=== PATIENT | male | born 1985 | race Caucasian/White ===

== ENCOUNTER 2017-01-16 20:36 | Emergency (ER) | payer OTHER, SELFPAY ==
[~2017-01-16] VITALS: Ht 177.8 cm; Wt 117.9 kg
[2017-01-16] MEDS ORDERED: NORCO, ANEXSIA 5/325MG TABLET (HYDROcodone/ACETAMINOPHEN) PO ONE (21:30)
[2017-01-16] MEDS ORDERED: NORCO 5/325MG TABLET (BULK FOR ED) PO ONE (22:15)
[2017-01-16] MEDS ORDERED: NORCOTAB PO (22:30)
[2017-01-16 22:58] VITALS: BP 158/84
--- NOTE | 2017-01-17 07:48 | REP ---
There is an a avulsion versus accessory ossicle at the base of the middle finger proximal phalange. Mineralization and joint spaces are otherwise unremarkable. No foreign bodies. Correlation with clinical point tenderness is recommended. Signed by Jose Cook MD 01/17/2017 07:40 A
--- NOTE | 2017-01-17 07:50 | REP ---
Bilateral femurs: Right femur four views: There is a fracture versus unfused the epiphyses of the lesser trochanter, nondisplaced. Mineralization and joint space are normal. No other fracture or dislocation. Left femur four views: There is no fracture or dislocation. Mineralization and joint spaces are normal. No calcifications or foreign bodies. Impression: Negative left femur. Signed by Jose Cook MD 01/17/2017 07:42 A
--- NOTE | 2017-01-17 07:51 | REP ---
AP pelvis: There is a fracture versus accessory ossicle at the tip of the right lesser trochanter. No other pelvic fractures identified. Mineralization joint spaces are normal. There are no foreign bodies. Signed by Jose Cook MD 01/17/2017 07:43 A
--- NOTE | 2017-01-17 12:49 | ED PDOC ---
Post-Departure Follow-Up certified letter sent to pt re formal read of right hand film. needs repeat exam. refer to ortho please if persistent symptoms. Rogelio Conte MD Jan 17, 2017 12:49
== END 2017-01-16 23:12 | disposition home or self-care (01) ==
LOC: EDBD 20:36 → M ED 20:36
DX: S66.911A Strain of unspecified muscle, fascia and tendon at wrist and hand level, right hand, initial encounter (principal); S70.11XA Contusion of right thigh, initial encounter; S70.12XA Contusion of left thigh, initial encounter; V23.4XXA Motorcycle driver injured in collision with car, pick-up truck or van in traffic accident, initial encounter; Y92.410 Unspecified street and highway as the place of occurrence of the external cause; Y93.89 Activity, other specified; Y99.9 Unspecified external cause status

== ENCOUNTER 2017-01-21 12:36 | Emergency (ER) | payer OTHER, SELFPAY ==
[~2017-01-21] VITALS: Ht 177.8 cm; Wt 118.2 kg
[~2017-01-21 12:36] MED LIST: NORCOTAB PO
[2017-01-21 12:37] VITALS: BP 148/82
[2017-01-21] MEDS ORDERED: NORCO, ANEXSIA 5/325MG TABLET (HYDROcodone/ACETAMINOPHEN) PO ONE (14:30)
--- NOTE | 2017-01-21 15:29 | REP ---
Right knee five views : There is no fracture or dislocation. Mineralization and joint spaces are normal. There are no calcifications or foreign bodies. Impression: Negative right knee . Signed by Jose Cook MD 01/21/2017 03:20 P
== END 2017-01-21 15:53 | disposition home or self-care (01) ==
LOC: M ED 12:36
DX: S80.01XD Contusion of right knee, subsequent encounter (principal); V23.4XXD Motorcycle driver injured in collision with car, pick-up truck or van in traffic accident, subsequent encounter; Y92.410 Unspecified street and highway as the place of occurrence of the external cause; Y93.89 Activity, other specified; Y99.9 Unspecified external cause status

== ENCOUNTER 2017-08-29 03:23 | Emergency (ER) | payer SELFPAY ==
[2017-08-29] MEDS: ASPIRIN 325 MG TAB PO (04:06)
[2017-08-29] MEDS: KETOROLAC 30 MG/ML VIAL (J1885) IV (04:06)
[2017-08-29] MEDS: NS 1,000 ML IV (04:08)
[2017-08-29 04:14] LABS: BASO % 0.4 % (0.0-1.0); EOS % 0.5 % (0.0-3.0); HEMOGLOBIN 14.9 g/dl (14.0-18.0); IMMATURE GRANULOCYTE % 0.5 % (0-3.0); LYMPH # 2.1 10^3/uL (1.5-4.5); LYMPH % 28.7 % (24.0-44.0); MEAN CORPUSCULAR HEMOGLOBIN 31.8 pg (27.0-33.0); MEAN CORPUSCULAR HGB CONC 35.5 g/dl (32.0-36.5); MEAN CORPUSCULAR VOLUME 89.6 fl (80.0-96.0); MONO # 0.6 10^3/uL (0.0-0.8); MONO % 8.4 % (0.0-5.0); NEUTROPHILS # 4.5 10^3/uL (1.8-7.7); NEUTROPHILS % 61.5 % (36.0-66.0); PLATELET COUNT, AUTOMATED 206 10^3/uL (150-450); RED BLOOD COUNT 4.69 10^6/uL (4.30-6.10); RED CELL DISTRIBUTION WIDTH 12.5 % (11.5-14.5); WHITE BLOOD COUNT 7.3 10^3/uL (4.0-10.0)
[2017-08-29 04:17] LABS: INR 0.95; PARTIAL THROMBOPLASTIN TIME 27.7 SECONDS (26.8-37.9); PROTHROMBIN TIME 12.8 SECONDS (12.4-14.5)
[2017-08-29 04:18] LABS: ANION GAP 7 MEQ/L (8-16); BLOOD UREA NITROGEN 15 MG/DL (7-18); CALCIUM LEVEL 8.6 MG/DL (8.5-10.1); CARBON DIOXIDE LEVEL 29 MEQ/L (21-32); CHLORIDE LEVEL 107 MEQ/L (98-107); CK-MB VALUE MASS 6.5 NG/ML (0.0-3.6); CPK CREATINE PHOSPHOKINASE 291 U/L (39-308); GLOMERULAR FILTRATION RATE > 60.0 (>60); GLUCOSE, FASTING 77 MG/DL (70-100); MB/CK RELATIVE INDEX 2.23 (< OR =4); POTASSIUM SERUM 3.6 MEQ/L (3.5-5.1); SODIUM LEVEL 143 MEQ/L (136-145); TROPONIN I < 0.02 NG/ML (< 0.10)
[2017-08-29] MEDS ORDERED: ISOVUE-370 76% 100ML VIAL (Q9967) As Ordered ×2 (04:26→04:48)
[2017-08-29 04:39] LABS: AMPHETAMINES LEVEL URINE NEGATIVE (NEGATIVE); BARBITURATES URINE NEGATIVE (NEGATIVE); BENZODIAZEPINES URINE NEGATIVE (NEGATIVE); CANNABINOIDS URINE POSITIVE (NEGATIVE); COCAINE METABOLITE URINE NEGATIVE (NEGATIVE); METHADONE URINE NEGATIVE (NEGATIVE); OPIATES URINE NEGATIVE (NEGATIVE); PHENCYCLIDINE URINE NEGATIVE (NEGATIVE)
== END 2017-08-29 06:45 | disposition home or self-care (01) ==
LOC: M ED 03:23
DX: R07.89 Other chest pain (principal); Z87.891 Personal history of nicotine dependence
CPT/HCPCS: Q9967

== ENCOUNTER 2018-03-17 21:08 | Emergency (ER) | payer MEDICAID, SELFPAY ==
[2018-03-17] MEDS: BENZONATATE 100 MG CAP PO ×2 (21:59)
[2018-03-17] MEDS: IBUPROFEN 800 MG TAB PO ×2 (21:59)
[2018-03-17 22:01] LABS: BASO # 0.1 10^3/uL (0.0-0.2); BASO % 0.6 % (0.0-1.0); EOS # 0.1 10^3/uL (0.0-0.50); HEMATOCRIT 44.1 % (42.0-52.0); HEMOGLOBIN 15.3 g/dl (13.5-17.5); IMMATURE GRANULOCYTE % 0.6 % (0-3.0); LYMPH % 29.8 % (24.0-44.0); MEAN CORPUSCULAR HEMOGLOBIN 31.9 pg (27.0-33.0); MEAN CORPUSCULAR HGB CONC 34.7 g/dl (32.0-36.5); MEAN CORPUSCULAR VOLUME 91.9 fl (80.0-96.0); MONO # 0.8 10^3/uL (0.0-0.8); MONO % 8.2 % (0.0-5.0); NEUTROPHILS # 6.1 10^3/uL (1.8-7.7); NEUTROPHILS % 59.8 % (36.0-66.0); PLATELET COUNT, AUTOMATED 230 10^3/uL (150-450); RED CELL DISTRIBUTION WIDTH 12.3 % (11.5-14.5); WHITE BLOOD COUNT 10.2 10^3/uL (4.0-10.0)
[2018-03-17] MEDS: ALBUTEROL SULFATE 2.5 MG/0.5 ML INH NEB SOLN NEB ×2 (22:03)
[2018-03-17 22:25] LABS: ANION GAP 6 MEQ/L (8-16); BLOOD UREA NITROGEN 17 MG/DL (7-18); CALCIUM LEVEL 9.2 MG/DL (8.5-10.1); CARBON DIOXIDE LEVEL 30 MEQ/L (21-32); CHLORIDE LEVEL 107 MEQ/L (98-107); CPK CREATINE PHOSPHOKINASE 339 U/L (39-308); CREATININE FOR GFR 1.04 MG/DL (0.70-1.30); GLOMERULAR FILTRATION RATE > 60.0 (>60); GLUCOSE, FASTING 101 MG/DL (70-100); MB/CK RELATIVE INDEX 1.56 (< OR =4); POTASSIUM SERUM 4.1 MEQ/L (3.5-5.1); SODIUM LEVEL 143 MEQ/L (136-145); TROPONIN I < 0.02 NG/ML (< 0.10)
[2018-03-17] MEDS: AZITHROMYCIN 250 MG TAB PO ×2 (23:00)
== END 2018-03-17 23:12 | disposition home or self-care (01) ==
LOC: M ED 21:08
DX: J40 Bronchitis, not specified as acute or chronic (principal)
CPT/HCPCS: 71046

== ENCOUNTER 2018-03-29 11:33 | Emergency (ER) | payer MEDICAID, SELFPAY ==
[2018-03-29 12:02] LABS: BASO % 0.4 % (0.0-1.0); EOS # 0.1 10^3/uL (0.0-0.50); EOS % 1.1 % (0.0-3.0); HEMATOCRIT 47.2 % (42.0-52.0); HEMOGLOBIN 16.7 g/dl (13.5-17.5); IMMATURE GRANULOCYTE % 0.7 % (0-3.0); LYMPH # 1.8 10^3/uL (1.5-4.5); LYMPH % 23.8 % (24.0-44.0); MEAN CORPUSCULAR HEMOGLOBIN 32.2 pg (27.0-33.0); MEAN CORPUSCULAR HGB CONC 35.4 g/dl (32.0-36.5); MEAN CORPUSCULAR VOLUME 90.9 fl (80.0-96.0); MONO # 0.6 10^3/uL (0.0-0.8); MONO % 7.4 % (0.0-5.0); NEUTROPHILS % 66.6 % (36.0-66.0); PLATELET COUNT, AUTOMATED 195 10^3/uL (150-450); RED BLOOD COUNT 5.19 10^6/uL (4.30-6.10); RED CELL DISTRIBUTION WIDTH 12.4 % (11.5-14.5); WHITE BLOOD COUNT 7.5 10^3/uL (4.0-10.0)
[2018-03-29 12:42] LABS: ALBUMIN 3.7 GM/DL (3.2-5.2); ALBUMIN/GLOBULIN RATIO 0.95 (1.00-1.93); ALKALINE PHOSPHATASE 61 U/L (45-117); ALT/SGPT 122 U/L (12-78); ANION GAP 5 MEQ/L (8-16); AST/SGOT 44 U/L (7-37); BILIRUBIN,DIRECT 0.1 MG/DL (0.0-0.2); BILIRUBIN,TOTAL 0.6 MG/DL (0.2-1.0); BLOOD UREA NITROGEN 12 MG/DL (7-18); CALCIUM LEVEL 8.7 MG/DL (8.5-10.1); CARBON DIOXIDE LEVEL 29 MEQ/L (21-32); CHLORIDE LEVEL 106 MEQ/L (98-107); CREATININE FOR GFR 0.97 MG/DL (0.70-1.30); GLOMERULAR FILTRATION RATE > 60.0 (>60); GLUCOSE, FASTING 111 MG/DL (70-100); LIPASE 115 U/L (73-393); POTASSIUM SERUM 4.1 MEQ/L (3.5-5.1); SODIUM LEVEL 140 MEQ/L (136-145); TOTAL PROTEIN 7.6 GM/DL (6.4-8.2)
[2018-03-29 12:56] LABS: KETONE, URINE AUTO RFX NEGATIVE (NEGATIVE); LEUKOCYTE ESTERASE UR AUTO RFX NEGATIVE (NEGATIVE); NITRITE, URINE AUTO RFX NEGATIVE (NEGATIVE); RBC, URINE AUTO RFX 1 /HPF (0-3); SPECIFIC GRAVITY UR AUTO RFX 1.021 (1.002-1.035); SQUAM EPITHELIAL CELL UR AURFX 0 /HPF (0-6); WBC, URINE AUTO RFX 1 /HPF (0-3)
[2018-03-29] MEDS: NS 1,000 ML IV (13:16)
[2018-03-29] MEDS: KETOROLAC 30 MG/ML VIAL (J1885) IV (13:16)
== END 2018-03-29 14:31 | disposition home or self-care (01) ==
LOC: M ED 11:33
DX: M54.5 Low back pain (principal)
CPT/HCPCS: J1885

== ENCOUNTER 2018-07-25 21:46 | Emergency (ER) | payer MEDICAID, OTHER ==
[~2018-07-25] VITALS: Ht 180.3 cm; Wt 122.7 kg
[2018-07-25 21:46] VITALS: BP 141/98
[~2018-07-25 21:46] MED LIST changes: +CHERSYP3 PO; +CYCL10TA PO; +KETO10TAB PO; +PRED20TA PO; +PROAAER10 INH; +TESS100C PO; +ZITHTAB PO
--- NOTE | 2018-07-26 07:46 | REP ---
Left foot four views : There is no fracture or dislocation. Mineralization and joint spaces are normal. There are no calcifications or foreign bodies. Impression: Negative left foot . Electronically Signed by Jose Cook MD 07/26/2018 07:37 A
== END 2018-07-25 22:30 | disposition home or self-care (01) ==
LOC: M ED 21:46
DX: S93.602A Unspecified sprain of left foot, initial encounter (principal); W17.89XA Other fall from one level to another, initial encounter; Y92.019 Unspecified place in single-family (private) house as the place of occurrence of the external cause

== ENCOUNTER 2018-08-07 13:39 | Emergency (ER) | payer OTHER ==
[~2018-08-07] VITALS: Ht 180.3 cm; Wt 122.7 kg
[2018-08-07] MEDS ORDERED: NAPR-885 (13:46)
[2018-08-07] MEDS ORDERED: ROBI1LIQ9 PO (13:46)
[2018-08-07] MEDS ORDERED: IPRATROPIUM 0.5MG/ALBUTEROL 2.5MG INH SOL UD 3ML (DUONEB)(J7620) NEB ONE (14:30)
--- NOTE | 2018-08-07 14:59 | REP ---
Chest two views HISTORY: Cough Comparison: 03/17/2018 The lungs are clear. The heart is normal in size. The pulmonary vasculature is normal in appearance. The bony structure is intact. IMPRESSION: No acute disease. Electronically Signed by Selvin Ramirez MD 08/07/2018 02:51 P
[2018-08-07] MEDS ORDERED: BENZ200C70 PO (15:44)
[2018-08-07] MEDS ORDERED: AZIT-12 PO (15:44)
[2018-08-07] MEDS ORDERED: VENTAER INH (15:44)
[2018-08-07 15:51] VITALS: BP 135/85
--- NOTE | 2018-08-08 07:40 | ECGEPIP ---
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
== END 2018-08-07 15:52 | disposition home or self-care (01) ==
LOC: M ED 13:39
DX: J45.901 Unspecified asthma with (acute) exacerbation (principal); J20.9 Acute bronchitis, unspecified

== ENCOUNTER 2018-08-20 16:28 | Emergency (ER) | payer OTHER ==
[~2018-08-20] VITALS: Ht 180.3 cm; Wt 122.7 kg
[~2018-08-20 16:28] MED LIST changes: +AZIT-12 PO; +BENZ200C70 PO; +NAPR-885; +ROBI1LIQ9 PO; +VENTAER INH
[2018-08-20] MEDS ORDERED: PRED10TA2 PO (17:58)
[2018-08-20] MEDS ORDERED: METH1TAB40 PO (17:58)
[2018-08-20] MEDS ORDERED: predniSONE 20 MG TAB PO ONE (18:00)
[2018-08-20] MEDS ORDERED: MORPHINE 10 MG/ML 1ML VIAL (J2270) IM ONE (18:00)
[2018-08-20] MEDS ORDERED: METHOCARBAMOL 500 MG TAB PO ONE (18:00)
[2018-08-20 18:45] VITALS: BP 138/96
== END 2018-08-20 18:45 | disposition home or self-care (01) ==
LOC: M ED 16:28
DX: S39.012A Strain of muscle, fascia and tendon of lower back, initial encounter (principal); X50.0XXA Overexertion from strenuous movement or load, initial encounter; Y92.89 Other specified places as the place of occurrence of the external cause; J45.909 Unspecified asthma, uncomplicated
CPT/HCPCS: 96372; 99283; J2270

== ENCOUNTER 2019-06-18 08:33 | Emergency (ER) | payer OTHER, SELFPAY ==
[~2019-06-18] VITALS: Ht 177.8 cm; Wt 128.5 kg
[~2019-06-18 08:33] MED LIST changes: +HYDR-3715 PO; +METH1TAB40 PO; -NORCOTAB PO; +PRED10TA2 PO
[2019-06-18] MEDS ORDERED: ROBI1LIQ9 PO (08:39)
[2019-06-18] MEDS ORDERED: IPRATROPIUM 0.5MG/ALBUTEROL 2.5MG INH SOL UD 3ML (DUONEB)(J7620) NEB ONE (09:15)
[2019-06-18] MEDS ORDERED: BENZONATATE 100 MG CAP PO ONE (09:15)
--- NOTE | 2019-06-18 09:31 | REP ---
Chest x-ray: Two views. History: Shortness of breath and chest pain . Comparison study: August 07, 2018 . Findings: The lungs are well inflated and free of infiltrate. The pleural angles are sharp. The heart size is normal. Pulmonary vasculature is not increased. No significant bony abnormality is seen. Impression: Negative chest x-ray. Electronically Signed by Rashard Ortiz MD 06/18/2019 09:22 A
[2019-06-18 10:28] LABS: INFLUENZA A AMPLIFICATION NEGATIVE (NEGATIVE); INFLUENZA B AMPLIFICATION POSITIVE (NEGATIVE)
[2019-06-18] MEDS ORDERED: BENZ200C70 PO (10:35)
[2019-06-18 10:43] VITALS: BP 136/95
--- NOTE | 2019-06-20 07:36 | ECGEPIP ---
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
== END 2019-06-18 10:51 | disposition home or self-care (01) ==
LOC: M ED 08:33
DX: J10.1 Influenza due to other identified influenza virus with other respiratory manifestations (principal); J45.909 Unspecified asthma, uncomplicated; F12.10 Cannabis abuse, uncomplicated

== ENCOUNTER 2019-08-26 20:14 | Emergency (ER) | payer OTHER, SELFPAY ==
[~2019-08-26] VITALS: Ht 180.3 cm; Wt 127.3 kg
[2019-08-26] MEDS ORDERED: GABAPENTIN 300 MG CAP PO ONE (21:00)
[2019-08-26] MEDS ORDERED: KETOROLAC 60 MG/2 ML VIAL (J1885) IM ONE (21:00)
[2019-08-26] MEDS ORDERED: CYCLOBENZAPRINE 10 MG TAB PO ONE (21:00)
[2019-08-26] MEDS ORDERED: methylPREDNISolone INJ 125 MG/2 ML VIAL (J2930) IM ONE (21:00)
[2019-08-26 22:18] VITALS: BP 141/94
[2019-08-26] MEDS ORDERED: ROBA750T4 PO (22:19)
[2019-08-26] MEDS ORDERED: NEUR300C PO (22:19)
== END 2019-08-26 22:28 | disposition home or self-care (01) ==
LOC: M ED 20:14
DX: M54.32 Sciatica, left side (principal); J45.909 Unspecified asthma, uncomplicated; F12.10 Cannabis abuse, uncomplicated
CPT/HCPCS: 96372; 99283; J1885; J2930

== ENCOUNTER 2019-10-21 03:13 | Emergency (ER) | payer OTHER ==
[~2019-10-21] VITALS: Ht 180.3 cm; Wt 128.1 kg
[2019-10-21 03:13] VITALS: BP 146/89
[~2019-10-21 03:13] MED LIST changes: +CYCL-707 PO; -CYCL10TA PO; +NEUR300C PO; +ROBA750T4 PO
[2019-10-21] MEDS ORDERED: KEFL500C17 PO (04:07)
[2019-10-21] MEDS ORDERED: CEPHALEXIN 500 MG CAP PO ONE (04:15)
== END 2019-10-21 04:28 | disposition home or self-care (01) ==
LOC: M ED 03:13
DX: L03.116 Cellulitis of left lower limb (principal)

== ENCOUNTER 2019-12-18 20:03 | Emergency (ER) | payer OTHER ==
[~2019-12-18] VITALS: Ht 180.3 cm; Wt 127.2 kg
[~2019-12-18 20:03] MED LIST changes: +KEFL500C17 PO
[2019-12-18] MEDS ORDERED: KETOROLAC 30 MG/ML 1ML VIAL IV ONE (21:15)
[2019-12-18] MEDS ORDERED: ISOVUE-370 76% 100ML VIAL As Ordered ONE (21:24)
[2019-12-18 21:44] LABS: BASO % 0.3 % (0.0-1.0); EOS # 0.1 10^3/uL (0.0-0.5); HEMATOCRIT 42.5 % (42.0-52.0); HEMOGLOBIN 14.7 g/dl (13.5-17.5); MEAN CORPUSCULAR HEMOGLOBIN 31.5 pg (27.0-33.0); MEAN CORPUSCULAR HGB CONC 34.6 g/dl (32.0-36.5); MONO # 0.6 10^3/uL (0.0-0.8); MONO % 6.5 % (0.0-5.0); NEUTROPHILS # 6.1 10^3/uL (1.5-8.5); NEUTROPHILS % 68.4 % (36.0-66.0); PLATELET COUNT, AUTOMATED 199 10^3/uL (150-450); RED BLOOD COUNT 4.67 10^6/uL (4.30-6.10); WHITE BLOOD COUNT 8.9 10^3/uL (4.0-10.0)
--- NOTE | 2019-12-18 21:59 | REPVR ---
PROCEDURE INFORMATION: Exam: CT Left Lower Extremity Without Contrast, Foot Exam date and time: 12/18/2019 9:31 PM Age: 34 years old Clinical indication: Condition or disease; Other: Abscess; Additional info: Recurrent abscess top medial foot, osteomyelitis? TECHNIQUE: Imaging protocol: CT of the Left lower extremity without contrast was performed. Exam focused on the foot. Radiation optimization: All CT scans at this facility use at least one of these dose optimization techniques: automated exposure control; mA and/or kV adjustment per patient size (includes targeted exams where dose is matched to clinical indication); or iterative reconstruction. Other contrast: isovue 370; COMPARISON: CR Foot, complete 07/25/2018 10:09 PM FINDINGS: Bones/joints: No acute osseous lesion or fracture. No evidence of acute osteomyelitis. Soft tissues: Approximately 1.6 cm subcutaneous fluid collection with peripheral enhancement in the superficial soft tissues of the medial dorsal aspect of the foot, concerning for small abscess. IMPRESSION: 1. Findings concerning for approximately 1.6 cm subcutaneous abscess within the superficial soft tissues of the medial dorsal aspect of the foot. 2. No evidence of osteomyelitis. Electronically signed by: Michael Motley On 12/18/2019 21:59:28 PM
[2019-12-18 22:01] LABS: ERYTHROCYTE SEDIMENTATION RATE 3 mm/hr (0-15)
[2019-12-18] MEDS ORDERED: LIDOCAINE W/EPINEPHRINE 1% 20ML VIAL SC ONE (22:30)
[2019-12-18] MEDS ORDERED: BACT800T5 PO (22:47)
[2019-12-18 22:59] VITALS: BP 145/80
[2019-12-18] MEDS ORDERED: BACTRIM 160MG/800MG DS TAB PO ONE (23:00)
== END 2019-12-18 23:10 | disposition home or self-care (01) ==
LOC: M ED 20:03 → EEVIPCON 20:03 → M ED 23:10
DX: L02.612 Cutaneous abscess of left foot (principal); J45.909 Unspecified asthma, uncomplicated; Z87.891 Personal history of nicotine dependence; Z91.018 Allergy to other foods; Z91.89 Other specified personal risk factors, not elsewhere classified
CPT/HCPCS: 10060; 73701; 80047; 85025; 85652; 86140; 87040; 87070; 87077; 87186; 96374; 99284; J1885; Q9967

== ENCOUNTER 2020-02-29 20:24 | Emergency (ER) | payer OTHER ==
[~2020-02-29] VITALS: Ht 180.3 cm; Wt 127.6 kg
[~2020-02-29 20:24] MED LIST changes: +BACT800T5 PO
--- NOTE | 2020-02-29 21:31 | REPVR ---
PROCEDURE INFORMATION: Exam: XR Right Wrist Exam date and time: 02/29/2020 9:17 PM Age: 34 years old Clinical indication: Injury or trauma; Injury history: Nail was removed; Initial encounter; Sprain or strain; Wrist; Right; Additional info: Penetrating trauma TECHNIQUE: Imaging protocol: XR Right wrist. Views: 3 or more views. COMPARISON: CR Hand, complete RIGHT 01/16/2017 9:54 PM FINDINGS: Bones/joints: No fractures. Soft tissues: Mild edema about the wrist. IMPRESSION: 1. Mild edema about the wrist. 2. Otherwise negative right wrist. Electronically signed by: Shabbir Pike On 02/29/2020 21:30:54 PM
[2020-02-29] MEDS ORDERED: IBUPROFEN 800 MG TAB PO ONE (21:45)
[2020-02-29 22:06] VITALS: BP 133/93
== END 2020-02-29 22:10 | disposition home or self-care (01) ==
LOC: M ED 20:24
DX: S61.531A Puncture wound without foreign body of right wrist, initial encounter (principal); W29.4XXA Contact with nail gun, initial encounter; Y92.89 Other specified places as the place of occurrence of the external cause; Y93.9 Activity, unspecified; Y99.0 Civilian activity done for income or pay; Z91.018 Allergy to other foods; Z91.89 Other specified personal risk factors, not elsewhere classified

== ENCOUNTER 2020-04-10 12:53 | Emergency (ER) | payer OTHER ==
[~2020-04-10] VITALS: Ht 180.3 cm; Wt 127.3 kg
--- NOTE | 2020-04-10 13:37 | REP ---
INDICATION: trauma. COMPARISON: Comparison head CT study August 30, 2015.. TECHNIQUE: Helical scanning is acquired. 5 mm axial images were reformatted. Coronal MPR images were generated. FINDINGS: Bone window settings demonstrate an intact bony calvarium. There is no evidence of skull fracture or incidental bony calvarial lesion. The visualized paranasal sinuses appear clear. No intraorbital abnormality is seen. On soft tissue window setting images; the lateral, third, and fourth ventricles are normal in size and position. Elam-white differentiation pattern is normal above and below the tentorium. There are is no evidence of intracranial hemorrhage. No mass, edema, infarction, or midline shift is seen. No extra-axial fluid collection is appreciated. IMPRESSION: Negative noncontrast head CT. <Electronically signed by Sandoval Ortiz > 04/10/20 [id number]
--- NOTE | 2020-04-10 13:40 | REP ---
INDICATION: trauma. COMPARISON: None. TECHNIQUE: Helical scanning is acquired and 3 mm axial images are generated. Coronal MPR images are generated and reviewed. FINDINGS: The nasal bone is deviated to the right but appears intact. No acute fracture is seen the inferior maxillary spine is intact. No mandibular fracture is seen. The zygomatic arches are intact. Maxillary sinuses are clear. Ethmoid and sphenoid aeration is normal. Bony sinus margins are intact. Frontal sinuses are clear. No mastoid for sinus fracture or opacification is seen. Nasal turbinates soft tissues are symmetric. There is a rightward beak in the anterior aspect of the nasal septum. IMPRESSION: No maxillofacial or mandibular fracture seen. No evidence of skull base fracture. Multiple carious maxillary and mandibular teeth are noted. <Electronically signed by Sandoval Ortiz > 04/10/20 [id number]
--- NOTE | 2020-04-10 13:42 | REP ---
INDICATION: trauma. COMPARISON: None. TECHNIQUE: Helical scanning is acquired and overlapping 2 mm high resolution axial images were generated and reviewed at bone and soft tissue window settings. Coronal and sagittal multiplanar re-formations images are generated. FINDINGS: There is no evidence of cervical spine element fracture. No skull base fracture is seen. Cervical vertebral body heights are preserved. Alignment is normal. Facet joints are normally aligned bilaterally at each cervical level on multiplanar re-formations images. There is no evidence of intraspinal or paraspinal hematoma. No extra vertebral abnormality is seen. There is minimal discogenic spurring anteriorly at C5-6. IMPRESSION: Negative CT study of the cervical spine without contrast. No fracture seen. <Electronically signed by Sandoval Ortiz > 04/10/20 0013
--- NOTE | 2020-04-10 14:34 | REP ---
INDICATION: trauma. COMPARISON: Comparison right wrist radiographs are from February 29, 2020.. TECHNIQUE: Four views FINDINGS: Four views of the right wrist demonstrate normal bones, joints, and soft tissues. No fracture or subluxation is seen. No erosive change is seen. No opaque foreign body or soft tissue gas is seen. IMPRESSION: Negative right wrist radiographs. <Electronically signed by Sandoval Ortiz > 04/10/20 0206
--- NOTE | 2020-04-10 14:37 | REP ---
INDICATION: trauma. COMPARISON: Comparison is made with imaging from CT abdomen pelvis March 29, 2018.. TECHNIQUE: Five views. FINDINGS: Five views of the lumbar spine show preserved vertebral body heights and normal alignment. There are bilateral pars defects at L5 again noted unchanged from the comparison CT imaging from March 29, 2018. There is a minimal 1-2 mm L5-S1 spondylolisthesis unchanged. A Schmorl's node is seen in the superior endplate of L5 on on unchanged. There is mild disc space narrowing at L4-5 and L5-S1. This is unchanged as well from the sagittal reformatted images from the CT study 2017. Pedicles and posterior elements are otherwise intact. No acute fracture or subluxation is seen. Sacrum and SI joints are intact. Psoas margins are symmetric. Visualized bowel gas pattern is unremarkable. IMPRESSION: No acute fracture or subluxation is seen. Bilateral spondylolysis L5 with 1-2 mm grade 1 L5-S1 spondylolisthesis and mild degenerative disc changes at L4-5 and L5-S1 again noted unchanged from imaging done March 29, 2018. <Electronically signed by Sandoval Ortiz > 04/10/20 1416
--- NOTE | 2020-04-10 14:38 | REP ---
INDICATION: trauma. COMPARISON: Comparison pelvis radiograph January 16, 2017.. TECHNIQUE: Single AP view. FINDINGS: A metallic coin is seen overlying the right proximal femur at the bottom edge of the field of view. Presumed clothing artifact. Bony pelvic ring is intact. No sacral or pelvic fracture is seen. No hip fracture is appreciated. Periarticular soft tissues are unremarkable. The visualized bowel gas pattern is normal. Lower psoas margins are intact. IMPRESSION: No fracture or other traumatic abnormality noted. <Electronically signed by Sandoval Ortiz > 04/10/20 [id number]
[2020-04-10 15:05] VITALS: BP 148/89
== END 2020-04-10 15:09 | disposition home or self-care (01) ==
LOC: M ED 12:53
DX: S63.501A Unspecified sprain of right wrist, initial encounter (principal); S09.90XA Unspecified injury of head, initial encounter; M54.2 Cervicalgia; W13.2XXA Fall from, out of or through roof, initial encounter; Y92.9 Unspecified place or not applicable; Y99.0 Civilian activity done for income or pay; J45.909 Unspecified asthma, uncomplicated; M43.06 Spondylolysis, lumbar region; M51.36 Other intervertebral disc degeneration, lumbar region; M51.37 Other intervertebral disc degeneration, lumbosacral region; M25.78 Osteophyte, vertebrae; Z91.018 Allergy to other foods; Z79.51 Long term (current) use of inhaled steroids; Z79.899 Other long term (current) drug therapy

== ENCOUNTER 2020-04-14 20:11 | Emergency (ER) | payer OTHER ==
[~2020-04-14] VITALS: Ht 180.3 cm; Wt 128.2 kg
[2020-04-14 20:12] VITALS: BP 133/94
[2020-04-14] MEDS ORDERED: diazePAM 10 MG TAB PO ONE (20:45)
[2020-04-14] MEDS ORDERED: NAPR-837 PO (20:45)
[2020-04-14] MEDS ORDERED: ROBA750T4 PO (20:45)
[2020-04-14] MEDS ORDERED: NAPROXEN 250 MG TAB PO ONE (20:45)
== END 2020-04-14 20:58 | disposition home or self-care (01) ==
LOC: M ED 20:11
DX: M54.32 Sciatica, left side (principal)

== ENCOUNTER 2020-05-22 20:37 | Emergency (ER) | payer OTHER ==
[~2020-05-22] VITALS: Ht 177.8 cm; Wt 128.2 kg
[~2020-05-22 20:37] MED LIST changes: +NAPR-837 PO
[2020-05-22] MEDS ORDERED: AMOX500C (20:44)
[2020-05-22] MEDS ORDERED: BOOSTRIX/ADACEL VACCINE (DIPHTH/PERTUSS/ACELL/TETANUS) 0.5ML SYR IM ONE (23:00)
[2020-05-22 23:20] LABS: BASO % 0.3 % (0.0-1.0); EOS # 0.1 10^3/uL (0.0-0.5); EOS % 0.8 % (0.0-3.0); HEMATOCRIT 44.5 % (42.0-52.0); HEMOGLOBIN 14.9 g/dl (13.5-17.5); LYMPH # 2.2 10^3/uL (1.5-5.0); LYMPH % 29.6 % (24.0-44.0); MEAN CORPUSCULAR HEMOGLOBIN 30.6 pg (27.0-33.0); MEAN CORPUSCULAR HGB CONC 33.5 g/dl (32.0-36.5); MEAN CORPUSCULAR VOLUME 91.4 fl (80.0-96.0); MONO # 0.6 10^3/uL (0.0-0.8); MONO % 7.5 % (0.0-5.0); NEUTROPHILS # 4.5 10^3/uL (1.5-8.5); NEUTROPHILS % 61.5 % (36.0-66.0); PLATELET COUNT, AUTOMATED 225 10^3/uL (150-450); RED BLOOD COUNT 4.87 10^6/uL (4.30-6.10); WHITE BLOOD COUNT 7.3 10^3/uL (4.0-10.0)
--- NOTE | 2020-05-22 23:39 | REPVR ---
PROCEDURE INFORMATION: Exam: XR Left Foot Complete Exam date and time: 05/22/2020 11:07 PM Age: 34 years old Clinical indication: Pain; Foot; Left; Additional info: Left foot pain/1st toe, stepped on nail TECHNIQUE: Imaging protocol: XR Left foot. Views: 3 or more views. COMPARISON: CT FOOT WITH CONTRAST 12/18/2019 9:25 PM FINDINGS: Bones/joints: No fracture. Soft tissues: No radiopaque foreign bodies are seen. IMPRESSION: Negative left foot. No radiopaque foreign bodies and no fracture. Electronically signed by: Shabbir Pike On 05/22/2020 23:39:42 PM
[2020-05-23 00:31] LABS: ALT/SGPT 60 U/L (12-78); BILIRUBIN,DIRECT 0.1 MG/DL (0.0-0.2); BILIRUBIN,TOTAL 0.5 MG/DL (0.2-1.0); BLOOD UREA NITROGEN 17 MG/DL (7-18); CALCIUM LEVEL 9.1 MG/DL (8.5-10.1); CARBON DIOXIDE LEVEL 26 MEQ/L (21-32); CHLORIDE LEVEL 109 MEQ/L (98-107); CREATININE FOR GFR 1.07 MG/DL (0.70-1.30); GLOMERULAR FILTRATION RATE > 60.0 (>60); GLUCOSE, FASTING 86 MG/DL (70-100); POTASSIUM SERUM 4.2 MEQ/L (3.5-5.1); SODIUM LEVEL 138 MEQ/L (136-145); TOTAL PROTEIN 7.4 GM/DL (6.4-8.2)
[2020-05-23] MEDS ORDERED: LEVO500T3 PO (00:39)
[2020-05-23] MEDS ORDERED: KEFL500C17 PO (00:39)
[2020-05-23] MEDS ORDERED: JUBL1SOL TOP (00:42)
[2020-05-23 00:53] VITALS: BP 120/85
== END 2020-05-23 01:00 | disposition home or self-care (01) ==
LOC: M ED 20:37
DX: S91.132A Puncture wound without foreign body of left great toe without damage to nail, initial encounter (principal); W45.0XXA Nail entering through skin, initial encounter; Y92.69 Other specified industrial and construction area as the place of occurrence of the external cause; Y93.9 Activity, unspecified; Y99.0 Civilian activity done for income or pay; B35.1 Tinea unguium; J45.909 Unspecified asthma, uncomplicated; F12.10 Cannabis abuse, uncomplicated; Z91.018 Allergy to other foods; Z91.048 Other nonmedicinal substance allergy status; Z79.899 Other long term (current) drug therapy; Z87.891 Personal history of nicotine dependence

== ENCOUNTER → 2020-06-04 | Outpatient (REF) | payer OTHER ==
[~2020-06-04] MED LIST changes: +AMOX500C; +JUBL1SOL TOP; +LEVO500T3 PO
[2020-06-04 13:44] LABS: BASO % 0.4 % (0.0-1.0); EOS # 0.1 10^3/uL (0.0-0.5); HEMATOCRIT 47.7 % (42.0-52.0); HEMOGLOBIN 16.2 g/dl (13.5-17.5); LYMPH % 29.6 % (24.0-44.0); MEAN CORPUSCULAR HEMOGLOBIN 31.6 pg (27.0-33.0); MONO # 0.7 10^3/uL (0.0-0.8); MONO % 10.8 % (0.0-5.0); NEUTROPHILS # 3.9 10^3/uL (1.5-8.5); NEUTROPHILS % 57.3 % (36.0-66.0); PLATELET COUNT, AUTOMATED 194 10^3/uL (150-450); RED BLOOD COUNT 5.13 10^6/uL (4.30-6.10); WHITE BLOOD COUNT 6.9 10^3/uL (4.0-10.0)
[2020-06-04 14:20] LABS: ALT/SGPT 55 U/L (12-78); BILIRUBIN,TOTAL 0.4 MG/DL (0.2-1.0); BLOOD UREA NITROGEN 15 MG/DL (7-18); CALCIUM LEVEL 9.3 MG/DL (8.5-10.1); CARBON DIOXIDE LEVEL 30 MEQ/L (21-32); CHLORIDE LEVEL 106 MEQ/L (98-107); CHOLESTEROL LEVEL 232 MG/DL (<200); CHOLESTEROL RISK RATIO 5.948 (<5); CK-MB VALUE MASS 3.7 NG/ML (<3.6); CPK CREATINE PHOSPHOKINASE 175 U/L (39-308); CREATININE FOR GFR 0.99 MG/DL (0.70-1.30); FREE T4 0.97 NG/DL (0.76-1.46); GLOMERULAR FILTRATION RATE > 60.0 (>60); GLUCOSE, FASTING 97 MG/DL (70-100); HDL CHOLESTEROL 39 MG/DL (>40); LDL CHOLESTEROL 144 MG/DL (<100); MB/CK RELATIVE INDEX 2.11 (< OR =4); NON-HDL-C 193 MG/DL; NT-PRO BNP 23 PG/ML (<125); POTASSIUM SERUM 4.6 MEQ/L (3.5-5.1); SODIUM LEVEL 141 MEQ/L (136-145); TOTAL PROTEIN 7.3 GM/DL (6.4-8.2); TRIGLYCERIDES LEVEL 244 MG/DL (<150); TROPONIN I < 0.02 NG/ML (< 0.10)
[2020-06-04 15:19] LABS: VITAMIN B12 LEVEL 616 PG/ML (247-911)
[2020-06-05 09:52] LABS: FOLATE 13.2 NG/ML (>5.4)
== END ==
LOC: M SFHCPLAZ 10:03
PROVIDERS: ATTEND Nurse Practitioner Family
DX: R07.9 Chest pain, unspecified (principal); F10.10 Alcohol abuse, uncomplicated; Z13.228 Encounter for screening for other metabolic disorders; Z13.220 Encounter for screening for lipoid disorders

== ENCOUNTER 2020-10-05 13:37 | Emergency (ER) | payer OTHER ==
[~2020-10-05] VITALS: Ht 180.3 cm; Wt 121.7 kg
[~2020-10-05 13:37] MED LIST changes: +METH-1164 PO; -METH1TAB40 PO
[2020-10-05] MEDS ORDERED: ASPIRIN 81 MG CHEW TABLET PO ONE (14:00)
--- NOTE | 2020-10-05 14:05 | REP ---
INDICATION: CHEST PAIN COMPARISON: 06/18/2019 TECHNIQUE: Portable AP view of the chest FINDINGS: The mediastinum and cardiac silhouette are stable and within normal limits for portable technique. The lung sandoval are clear without acute consolidation, effusion, or pneumothorax. Skeletal structures are intact. IMPRESSION: No acute cardiopulmonary process appreciated. <Electronically signed by Isra Rebolledo > 10/05/20 [id number]
[2020-10-05 14:24] LABS: BASO % 0.3 % (0.0-1.0); EOS % 0.6 % (0.0-3.0); HEMATOCRIT 48.9 % (42.0-52.0); HEMOGLOBIN 16.9 g/dl (13.5-17.5); LYMPH # 1.6 10^3/uL (1.5-5.0); LYMPH % 23.6 % (24.0-44.0); MEAN CORPUSCULAR HEMOGLOBIN 30.6 pg (27.0-33.0); MEAN CORPUSCULAR HGB CONC 34.6 g/dl (32.0-36.5); MEAN CORPUSCULAR VOLUME 88.4 fl (80.0-96.0); MONO # 0.6 10^3/uL (0.0-0.8); MONO % 8.5 % (2.0-8.0); NEUTROPHILS # 4.4 10^3/uL (1.5-8.5); NEUTROPHILS % 66.4 % (36.0-66.0); PLATELET COUNT, AUTOMATED 201 10^3/uL (150-450); RED BLOOD COUNT 5.53 10^6/uL (4.30-6.10); WHITE BLOOD COUNT 6.6 10^3/uL (4.0-10.0)
[2020-10-05 14:35] LABS: INR 0.98; PROTHROMBIN TIME 13.2 SECONDS (12.5-14.3)
[2020-10-05 14:36] LABS: PARTIAL THROMBOPLASTIN TIME 25.7 SECONDS (24.2-38.5)
[2020-10-05 14:56] LABS: ALBUMIN 4.1 GM/DL (3.2-5.2); ALT/SGPT 46 U/L (12-78); BILIRUBIN,DIRECT 0.1 MG/DL (0.0-0.2); BILIRUBIN,TOTAL 0.6 MG/DL (0.2-1.0); BLOOD UREA NITROGEN 16 MG/DL (7-18); CALCIUM LEVEL 9.8 MG/DL (8.5-10.1); CARBON DIOXIDE LEVEL 27 MEQ/L (21-32); CHLORIDE LEVEL 108 MEQ/L (98-107); CREATININE FOR GFR 0.87 MG/DL (0.70-1.30); FREE T4 0.87 NG/DL (0.76-1.46); GLOMERULAR FILTRATION RATE > 60.0 (>60); GLUCOSE, FASTING 104 MG/DL (70-100); LIPASE 103 U/L (73-393); POTASSIUM SERUM 4.3 MEQ/L (3.5-5.1); SODIUM LEVEL 140 MEQ/L (136-145); TOTAL PROTEIN 7.7 GM/DL (6.4-8.2)
[2020-10-05 15:24] LABS: D-DIMER QUANT < 270 ng/ml (<500)
[2020-10-05] MEDS ORDERED: GI COCKTAIL 50ML BTL(HYOSCYAMINE/MAALOX/LIDOCAINE VISCOUS)(1:3:1) PO ONE (15:40)
[2020-10-05 17:00] VITALS: BP 119/76
--- NOTE | 2020-10-05 22:06 | ECGEPIP ---
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
--- NOTE | 2020-10-05 22:07 | ECGEPIP ---
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
== END 2020-10-05 17:05 | disposition home or self-care (01) ==
LOC: M ED 13:37
DX: R07.9 Chest pain, unspecified (principal); I45.19 Other right bundle-branch block; J45.909 Unspecified asthma, uncomplicated; F12.10 Cannabis abuse, uncomplicated; Z91.018 Allergy to other foods; Z91.89 Other specified personal risk factors, not elsewhere classified

== ENCOUNTER → 2021-01-20 | Outpatient (CLI) | payer OTHER ==
--- NOTE | 2021-01-20 15:26 | REP ---
INDICATION: ELBOW PAIN. COMPARISON: None. TECHNIQUE: Three views FINDINGS: Normal bone texture in alignment. No fracture or dislocation. Joint well maintained. No soft tissue abnormality. IMPRESSION: Normal exam. <Electronically signed by Matt Barba > 01/20/21 [id number]
== END ==
LOC: M PLAIMG 13:55
PROVIDERS: ATTEND Nurse Practitioner Family
DX: M25.552 Pain in left hip (principal)

== ENCOUNTER 2021-01-27 19:19 | Emergency (ER) | payer OTHER ==
[~2021-01-27] VITALS: Ht 177.8 cm; Wt 118.2 kg
[2021-01-27 19:21] VITALS: BP 129/81
== END 2021-01-28 00:41 | disposition left against medical advice (07) ==
LOC: M ED 19:19
DX: Z53.21 Procedure and treatment not carried out due to patient leaving prior to being seen by health care provider (principal)

== ENCOUNTER → 2021-03-26 | Outpatient (CLI) | payer OTHER ==
[2021-03-26 11:24] LABS: ALBUMIN 3.9 GM/DL (3.2-5.2); ALT/SGPT 53 U/L (12-78); BILIRUBIN,TOTAL 0.8 MG/DL (0.2-1.0); BLOOD UREA NITROGEN 16 MG/DL (7-18); CALCIUM LEVEL 8.7 MG/DL (8.5-10.1); CARBON DIOXIDE LEVEL 27 MEQ/L (21-32); CHLORIDE LEVEL 108 MEQ/L (98-107); CHOLESTEROL LEVEL 181 MG/DL (<200); CHOLESTEROL RISK RATIO 4.763 (<5); CREATININE FOR GFR 0.96 MG/DL (0.70-1.30); GLOMERULAR FILTRATION RATE > 60.0 (>60); GLUCOSE, FASTING 83 MG/DL (70-100); HDL CHOLESTEROL 38 MG/DL (>40); LDL CHOLESTEROL 107 MG/DL (<100); NON-HDL-C 143 MG/DL; POTASSIUM SERUM 4.4 MEQ/L (3.5-5.1); SODIUM LEVEL 139 MEQ/L (136-145); TOTAL PROTEIN 7.5 GM/DL (6.4-8.2); TRIGLYCERIDES LEVEL 180 MG/DL (<150)
== END ==
LOC: M LAB 09:47
PROVIDERS: ATTEND Nurse Practitioner Family
DX: E78.5 Hyperlipidemia, unspecified (principal)

== ENCOUNTER 2021-05-15 08:31 | Outpatient (CLI) | payer OTHER ==
[~2021-05-15] VITALS: Ht 177.8 cm; Wt 117.0 kg
[~2021-05-15 08:31] MED LIST changes: +ALBUTEROL 90 MCG/ACT 8GM HFA INHALER INH PRN; +ALBUTEROL SULFATE 2.5 MG/0.5 ML INH NEB SOLN INH PRN; +EPINEPHrine INJ 1 MG/ML 1ML AMP IM PRN; +NS 1,000 ML IV SCH; +diphenhydrAMINE 50MG/ML VIAL (J1200) IV PRN; +methylPREDNISolone 125MG 2ML VIAL IV PRN
[2021-05-15 08:59] VITALS: BP 115/66
[2021-05-15] MEDS ORDERED: [UNRECOGNIZED DRUG - OTHER] IV ONE (09:00)
[2021-05-15] MEDS ORDERED: CASIRIVIMAB/IMDEVIMAB 1,200 MG in NS 250 ML IV ONE (09:00)
[2021-05-15 09:29] VITALS: BP 115/56
[2021-05-15 09:59] VITALS: BP_SYST 115; BP_SYST 124; BP_DIAS 66
[2021-05-15 10:59] VITALS: BP 145/61
== END 2021-05-15 10:59 | disposition home or self-care (01) ==
LOC: M OPCLI4PR 08:31
PROVIDERS: ATTEND Nurse Practitioner Family
DX: U07.1 COVID-19 (principal); Z91.048 Other nonmedicinal substance allergy status; Z91.018 Allergy to other foods

== ENCOUNTER → 2022-02-10 | Outpatient (CLI) | payer OTHER ==
[~2022-02-10] MED LIST changes: -ALBUTEROL 90 MCG/ACT 8GM HFA INHALER INH PRN; -ALBUTEROL SULFATE 2.5 MG/0.5 ML INH NEB SOLN INH PRN; -EPINEPHrine INJ 1 MG/ML 1ML AMP IM PRN; +LEVO1TAB39 PO; -LEVO500T3 PO; -NS 1,000 ML IV SCH; -diphenhydrAMINE 50MG/ML VIAL (J1200) IV PRN; -methylPREDNISolone 125MG 2ML VIAL IV PRN
[2022-02-10 11:11] LABS: ALBUMIN 3.8 GM/DL (3.2-5.2); ALT/SGPT 35 U/L (12-78); BILIRUBIN,TOTAL 0.5 MG/DL (0.2-1.0); BLOOD UREA NITROGEN 14 MG/DL (7-18); CARBON DIOXIDE LEVEL 32 MEQ/L (21-32); CHLORIDE LEVEL 107 MEQ/L (98-107); CHOLESTEROL LEVEL 248 MG/DL (<200); CHOLESTEROL RISK RATIO 6.888 (<5); CREATININE FOR GFR 0.94 MG/DL (0.70-1.30); GLOMERULAR FILTRATION RATE > 60.0 (>60); GLUCOSE, FASTING 89 MG/DL (70-100); HDL CHOLESTEROL 36 MG/DL (>40); LDL CHOLESTEROL 148 MG/DL (<100); NON-HDL-C 212 MG/DL; POTASSIUM SERUM 4.4 MEQ/L (3.5-5.1); SODIUM LEVEL 140 MEQ/L (136-145); TOTAL PROTEIN 7.6 GM/DL (6.4-8.2); TRIGLYCERIDES LEVEL 321 MG/DL (<150)
[2022-02-10 11:37] LABS: HEMOGLOBIN A1c 5.2 %
== END ==
LOC: M PLALAB 08:14
PROVIDERS: ATTEND Nurse Practitioner Family
DX: Z13.1 Encounter for screening for diabetes mellitus (principal); E78.5 Hyperlipidemia, unspecified

== ENCOUNTER 2022-08-17 15:18 | Emergency (ER) | payer OTHER ==
[2022-08-17 15:19] VITALS: BP 132/84
== END 2022-08-17 18:07 | disposition left against medical advice (07) ==
LOC: M ED 15:18
DX: Z53.21 Procedure and treatment not carried out due to patient leaving prior to being seen by health care provider (principal)

== ENCOUNTER → 2022-09-24 | Outpatient (CLI) | payer OTHER ==
[2022-09-24 14:14] LABS: ALBUMIN 4.1 G/DL (3.2-5.2); ALKALINE PHOSPHATASE 52 U/L (46-116); ALT/SGPT 36 U/L (7.0-40); AST/SGOT 20 U/L (<34); BILIRUBIN,TOTAL 0.8 MG/DL (0.3-1.2); BLOOD UREA NITROGEN 23 MG/DL (9-23); CALCIUM LEVEL 9.3 MG/DL (8.5-10.1); CARBON DIOXIDE LEVEL 31 MMOL/L (20-31); CHLORIDE LEVEL 106 MMOL/L (98-107); CHOLESTEROL LEVEL 146 MG/DL (<200); CHOLESTEROL RISK RATIO 3.31 (<5); CREATININE FOR GFR 0.89 MG/DL (0.70-1.30); GLOMERULAR FILTRATION RATE > 60.0 (>60); GLUCOSE, FASTING 97 MG/DL (60-100); HDL CHOLESTEROL 44.1 MG/DL (>40); LDL CHOLESTEROL 79.9 MG/DL (<100); NON-HDL-C 101.9 MG/DL; SODIUM LEVEL 140 MMOL/L (136-145); TOTAL PROTEIN 7.2 G/DL (5.7-8.2); TRIGLYCERIDES LEVEL 110 MG/DL (<150)
== END ==
LOC: M PLALAB 10:26
PROVIDERS: ATTEND Nurse Practitioner Family
DX: E78.5 Hyperlipidemia, unspecified (principal)

== ENCOUNTER → 2023-07-01 | Outpatient (REF) | payer OTHER | LOC: M SFHCPLAZ 15:10 | PROVIDERS: ATTEND Student in an Organized Health Care Education/Training Program | DX: J06.9 Acute upper respiratory infection, unspecified (principal) ==

== ENCOUNTER → 2023-11-23 | Outpatient (REF) | payer OTHER | LOC: M SFHCPLAZ 14:46 | PROVIDERS: ATTEND Physician Assistant Medical | DX: J40 Bronchitis, not specified as acute or chronic (principal) ==

== ENCOUNTER → 2024-01-03 | Outpatient (CLI) | payer OTHER | LOC: M PLAIMG 12:20 → M PLALAB 12:20 | PROVIDERS: ATTEND Nurse Practitioner Family | DX: M25.561 Pain in right knee (principal); M79.89 Other specified soft tissue disorders ==

== ENCOUNTER → 2024-03-30 | Outpatient (CLI) | payer OTHER ==
[2024-03-30 11:11] LABS: BASO % 0.3 % (0.0-1.0); EOS % 0.7 % (0.0-3.0); HEMATOCRIT 45.9 % (42.0-52.0); HEMOGLOBIN 15.7 g/dl (13.5-17.5); LYMPH # 1.6 10^3/uL (1.5-5.0); LYMPH % 28.4 % (24.0-44.0); MEAN CORPUSCULAR HEMOGLOBIN 30.8 pg (27.0-33.0); MEAN CORPUSCULAR HGB CONC 34.2 g/dl (32.0-36.5); MEAN CORPUSCULAR VOLUME 90.2 fl (80.0-96.0); MONO # 0.6 10^3/uL (0.0-0.8); MONO % 10.2 % (2.0-8.0); NEUTROPHILS # 3.5 10^3/uL (1.5-8.5); NEUTROPHILS % 59.9 % (36.0-66.0); PLATELET COUNT, AUTOMATED 158 10^3/uL (150-450); RED BLOOD COUNT 5.09 10^6/uL (4.30-6.10); WHITE BLOOD COUNT 5.8 10^3/uL (4.0-10.0)
[2024-03-30 11:36] LABS: ALBUMIN 3.8 G/DL (3.2-5.2); ALKALINE PHOSPHATASE 57 U/L (46-116); ALT/SGPT 56 U/L (7.0-40); AST/SGOT 24 U/L (<34); BILIRUBIN,TOTAL 0.6 MG/DL (0.3-1.2); BLOOD UREA NITROGEN 19 MG/DL (9-23); CALCIUM LEVEL 9.8 MG/DL (8.5-10.1); CARBON DIOXIDE LEVEL 30 MMOL/L (20-31); CHLORIDE LEVEL 109 MMOL/L (98-107); CHOLESTEROL LEVEL 195 MG/DL (<200); CHOLESTEROL RISK RATIO 4.86 (<5); CREATININE FOR GFR 0.81 MG/DL (0.70-1.30); GLOMERULAR FILTRATION RATE > 60.0 (>60); GLUCOSE, FASTING 94 MG/DL (60-100); HDL CHOLESTEROL 40.1 MG/DL (>40); LDL CHOLESTEROL 120.9 MG/DL (<100); NON-HDL-C 154.9 MG/DL; SODIUM LEVEL 140 MMOL/L (136-145); TOTAL PROTEIN 7.1 G/DL (5.7-8.2); TRIGLYCERIDES LEVEL 170 MG/DL (<150)
== END ==
LOC: M PLALAB 09:25
PROVIDERS: ATTEND Nurse Practitioner Family
DX: E78.5 Hyperlipidemia, unspecified (principal); Z13.1 Encounter for screening for diabetes mellitus; K21.9 Gastro-esophageal reflux disease without esophagitis

== ENCOUNTER 2024-06-30 14:59 | Emergency (ER) | payer OTHER ==
[~2024-06-30] VITALS: Ht 177.8 cm; Wt 113.6 kg
[2024-06-30] MEDS ORDERED: VIBE75TA (15:12)
[2024-06-30] MEDS ORDERED: TERB250T91 (15:12)
[2024-06-30] MEDS ORDERED: ALBU8.5H (15:12)
[2024-06-30] MEDS ORDERED: ATOR1TAB21 (15:12)
[2024-06-30] MEDS ORDERED: NEOM1SUS10 (15:12)
[2024-06-30] MEDS: LIDOCAINE 1% MDV 20ML VIAL SC ONE (17:10)
[2024-06-30] MEDS: ACETAMINOPHEN 500 MG TAB PO ONE (17:13)
[2024-06-30] MEDS ORDERED: CEPH500C PO (17:57)
[2024-06-30] MEDS: CEPHALEXIN 500 MG CAP PO ONE (18:13)
[2024-06-30 18:19] VITALS: BP 127/83; TEMP 98.7; O2SAT 97
[2024-07-02] MEDS ORDERED: CEPH500C PO (15:15)
== END 2024-06-30 18:22 | disposition home or self-care (01) ==
LOC: M ED 14:59
DX: S61.211A Laceration without foreign body of left index finger without damage to nail, initial encounter (principal); W29.8XXA Contact with other powered hand tools and household machinery, initial encounter; Y92.009 Unspecified place in unspecified non-institutional (private) residence as the place of occurrence of the external cause; Y93.9 Activity, unspecified; Y99.9 Unspecified external cause status; J45.909 Unspecified asthma, uncomplicated; Z91.89 Other specified personal risk factors, not elsewhere classified; Z91.018 Allergy to other foods

== ENCOUNTER 2024-08-31 09:33 | Day surgery (SDC) | payer OTHER ==
[~2024-08-31] VITALS: Ht 177.8 cm; Wt 120.3 kg
[~2024-08-31 09:33] MED LIST changes: +ALBU8.5H; +ATOR1TAB21 PO; +CEPH500C PO; +ELDE350C PO; +FLAX1CAP5 PO; +FLUTISP; +LORA-1041 PO; +NEOM1SUS10; +PANT40TA29 PO; +SUCR1ORA PO; +TERB250T91; +THERTAB52 PO; +VIBE75TA; +VIBE75TA PO; +VITAD1000T PO; +[UNRECOGNIZED DRUG - OTHER] PO
[2024-08-31] MEDS ORDERED: LIDOCAINE 2% 100MG/5ML SDV (FOR ANES.) As Ordered ONE (10:26)
[2024-08-31] MEDS ORDERED: propofoL 200 MG/20 ML VIAL As Ordered ONE (10:26)
[2024-08-31] MEDS ORDERED: fentaNYL 100 MCG/2 ML INJECTION As Ordered ONE (10:27)
[2024-08-31 11:38] VITALS: TEMP 98.2
[2024-08-31 11:55] VITALS: BP 120/78; O2SAT 97
== END 2024-08-31 12:00 | disposition home or self-care (01) ==
LOC: M OPP 09:33
PROVIDERS: ATTEND Surgery
DX: R12 Heartburn (principal); Z91.018 Allergy to other foods; Z91.048 Other nonmedicinal substance allergy status; Z79.51 Long term (current) use of inhaled steroids; Z79.899 Other long term (current) drug therapy; J45.909 Unspecified asthma, uncomplicated; Z87.891 Personal history of nicotine dependence
CPT/HCPCS: 43239; 88305; J3010

== ENCOUNTER → 2024-09-17 | Outpatient (CLI) | payer OTHER | LOC: M PLAIMG 06:37 | PROVIDERS: ATTEND Student in an Organized Health Care Education/Training Program | DX: M51.362 Other intervertebral disc degeneration, lumbar region with discogenic back pain and lower extremity pain (principal); Q76.49 Other congenital malformations of spine, not associated with scoliosis; M62.830 Muscle spasm of back; M51.46 Schmorl's nodes, lumbar region; M47.817 Spondylosis without myelopathy or radiculopathy, lumbosacral region; M47.816 Spondylosis without myelopathy or radiculopathy, lumbar region ==

== ENCOUNTER → 2024-09-20 | Outpatient (REF) | payer OTHER ==
[2024-09-20 14:37] LABS: APPEARANCE, URINE CLEAR (CLEAR); BACTERIA, URINE AUTO NEGATIVE (NEGATIVE); BILIRUBIN, URINE AUTO NEGATIVE (NEGATIVE); BLOOD, URINE BLOOD NEGATIVE (NEGATIVE); COLOR, URINE YELLOW (YELLOW); GLUCOSE, URINE (UA) AUTO NEGATIVE (NEGATIVE); KETONE, URINE AUTO NEGATIVE (NEGATIVE); LEUKOCYTE ESTERASE, URINE AUTO NEGATIVE (NEGATIVE); MUCUS, URINE SMALL (NEGATIVE); NITRITE, URINE AUTO NEGATIVE (NEGATIVE); PROTEIN, URINE AUTO NEGATIVE (NEGATIVE); RBC, URINE AUTO 0 /HPF (0-3); SPECIFIC GRAVITY URINE AUTO 1.027 (1.002-1.035); SQUAMOUS EPITHELIAL CELL UR AU 0 /HPF (0-6); UROBILINOGEN, URINE AUTO 0.2 mg/dL (0.0-2.0); WBC, URINE AUTO 0 /HPF (0-3)
== END ==
LOC: M SMT 12:45
PROVIDERS: ATTEND Physician Assistant
DX: R39.9 Unspecified symptoms and signs involving the genitourinary system (principal)

== ENCOUNTER → 2025-01-18 | Outpatient (REF) | payer OTHER ==
[2025-01-18 12:33] LABS: PLATELET COUNT, AUTOMATED 172 10^3/uL (150-450)
[2025-01-18 13:46] LABS: ALT/SGPT 44 U/L (7.0-40); AST/SGOT 27 U/L (<34); CALCIUM LEVEL 9.0 MG/DL (8.5-10.1); CARBON DIOXIDE LEVEL 23 MMOL/L (20-31); CHLORIDE LEVEL 107 MMOL/L (98-107); CHOLESTEROL LEVEL 227 MG/DL (<200); CHOLESTEROL RISK RATIO 5.14 (<5); CREATININE FOR GFR 0.76 MG/DL (0.70-1.30); GLOMERULAR FILTRATION RATE > 90.0 (>60); LDL CHOLESTEROL 151.3 MG/DL (<100); NON-HDL-C 182.9 MG/DL; POTASSIUM SERUM 4.4 MMOL/L (3.5-5.1); SODIUM LEVEL 141 MMOL/L (136-145); TRIGLYCERIDES LEVEL 158 MG/DL (<150)
[2025-01-18 14:57] LABS: ESTIMATED AVERAGE GLUCOSE 100.0 MG/DL (60-110)
== END ==
LOC: M LAB REF 12:01
PROVIDERS: ATTEND Student in an Organized Health Care Education/Training Program
DX: Z00.01 Encounter for general adult medical examination with abnormal findings (principal); E66.3 Overweight; E55.9 Vitamin D deficiency, unspecified

== ENCOUNTER → 2025-05-13 | Outpatient (REF) | payer OTHER ==
[2025-05-13 14:31] LABS: CHOLESTEROL LEVEL 180.0 MG/DL (<200); CHOLESTEROL RISK RATIO 3.93 (<5); LDL CHOLESTEROL 98.6 MG/DL (<100); NON-HDL-C 134.2 MG/DL; TRIGLYCERIDES LEVEL 178.0 MG/DL (<150)
== END ==
LOC: M LAB REF 12:18
PROVIDERS: ATTEND Student in an Organized Health Care Education/Training Program
DX: E78.5 Hyperlipidemia, unspecified (principal)